=== PATIENT | female | born 1960 | race Two or more races ===

== ENCOUNTER 2018-07-16 19:30 | Emergency (ER) | payer OTHER ==
[~2018-07-16] VITALS: Ht 157.5 cm; Wt 46.7 kg
[~2018-07-16 19:30] MED LIST: DOLOGESIC-DF 51 EACH PO
== END 2018-07-16 22:04 | disposition home or self-care (01) ==
LOC: ER 19:30
DX: J11.1 Influenza due to unidentified influenza virus with other respiratory manifestations (principal)

== ENCOUNTER 2019-10-14 14:54 | Emergency (ER) | payer OTHER ==
[~2019-10-14] VITALS: Ht 157.5 cm; Wt 46.7 kg
== END 2019-10-14 22:49 | disposition home or self-care (01) ==
LOC: ER 14:54
DX: K52.89 Other specified noninfective gastroenteritis and colitis (principal); U07.1 COVID-19

== ENCOUNTER 2023-04-28 18:06 | Emergency (ER) | payer OTHER ==
[~2023-04-28] VITALS: Ht 157.5 cm; Wt 59.0 kg
[2023-04-28] MEDS ORDERED: FAMOTIDINE/PF 20 MG in 0.9 % SODIUM CHLORIDE 8 ML IV PUSH STA (19:12)
[2023-04-28] MEDS ORDERED: LEVALBUTEROL HCL 1.25 MG/3 ML SOLUTION IH SCH (19:30)
[2023-04-28] MEDS ORDERED: GUAIFENESIN/DEXTROMETHORPHAN 100 MG/5 ML ML PO ONE (19:30)
[2023-04-28] MEDS ORDERED: ONDANSETRON HCL 2 MG/ML VIAL IV ONE (19:30)
[2023-04-28 19:55] LABS: HEMATOCRIT 40.8 % (36.0-45.00); HEMOGLOBIN 13.8 g/dL (12.0-15.00); MEAN CELL VOLUME 87.4 fL (80.00-100.00); MEAN CORPUSCULAR HEMOGLOBIN 29.5 pg (27.00-32.0); MEAN CORPUSCULAR HGB CONC 33.8 g/dl (32.0-36.0); PLATELET COUNT 240 K/uL (150-450); RED BLOOD COUNT 4.67 M/uL (4.00-6.00)
[2023-04-28 20:15] LABS: ABG PH 7.415 (7.35-7.45); ABG PO2 91.9 mmHg (80-100); BASE EXCESS -3.4 mmol/l; BICARBONATE 20.1 mmol/l (23-25); Tco2 21.1 mmol/l; o2 21 %; puncture site RADIAL LEFT
[2023-04-28 20:16] LABS: SaO2 97.1 %; allen test SATISFACTORY
[2023-04-28 20:19] LABS: ALBUMIN 3.9 gm/dL (3.4-5.0); BILIRUBIN TOTAL 0.32 mg/dL (0.3-1.2); CALCIUM 9.5 mg/dL (8.5-10.1); CREATININE SERUM 0.87 mg/dL (0.55-1.02); GFR 65.76; GLOBULINA 3.9 G/DL (2.4-3.5); POTASSIUM 4.32 mEq/L (3.5-5.1); TOTAL PROTEIN 7.8 gm/dL (6.4-8.2)
[2023-04-28] MEDS ORDERED: OSEL75CA PO (20:54)
[2023-04-28] MEDS ORDERED: TUSNEL LIQUID178 ML PO (20:54)
[2023-04-28] MEDS ORDERED: PEPCID AC20 MG PO (20:55)
[2023-04-28] MEDS ORDERED: ONDANSETRON ODT8 MG PO (20:55)
[2023-04-28] MEDS ORDERED: XOPENEX CO1.25 MG/0. IH (20:58)
[2023-04-28] MEDS ORDERED: OSELTAMIVIR PHOSPHATE 75 MG CAPSULE PO ONE (21:15)
== END 2023-04-28 21:28 | disposition home or self-care (01) ==
LOC: ER 18:06
PROVIDERS: General Practice
DX: J10.1 Influenza due to other identified influenza virus with other respiratory manifestations (principal); Z20.822 Contact with and (suspected) exposure to COVID-19